=== PATIENT | male | born 1975 ===

== ENCOUNTER 2016-11-12 14:42 | Emergency (ER) | payer OTHER, MEDICARE ==
[2016-11-12 14:42] VITALS: BMI 30.7
[2016-11-12 14:57] VITALS: BP 151/93; RESP 16; TEMP 98; O2SAT 100
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
[2016-11-12 17:59] VITALS: PULSE 96
--- NOTE | 2016-11-13 19:22 | CARD ---
APPROVED REPORT EKG Measurement Heart [id number] <Conclusion> Normal sinus rhythm Nonspecific ST and T wave abnormality Abnormal ECG
== END 2016-11-12 17:50 | disposition home or self-care (01) ==
LOC: H.ER 14:42
DX: S16.1XXA Strain of muscle, fascia and tendon at neck level, initial encounter (principal); R07.9 Chest pain, unspecified; V49.40XA Driver injured in collision with unspecified motor vehicles in traffic accident, initial encounter; Y93.9 Activity, unspecified

== ENCOUNTER 2017-11-01 07:20 | Day surgery (SDC) | payer MEDICARE, OTHER ==
[2017-11-01] MEDS ORDERED: Lactated Ringer's 500 ML IV ONE (07:37)
[2017-11-01] MEDS ORDERED: Propofol 10 mg/ml Inj (20 ML) ONE (07:50)
[2017-11-01 09:10] VITALS: BP 127/69; PULSE 86; RESP 16; TEMP 97; O2SAT 100
== END 2017-11-01 09:47 | disposition home or self-care (01) ==
LOC: H.ENDO 07:20
PROVIDERS: ATTEND Internal Medicine Gastroenterology
DX: K30 Functional dyspepsia (principal); K29.70 Gastritis, unspecified, without bleeding
CPT/HCPCS: 43239; 88305; J2001; J2704; J3010; J7120